=== PATIENT | male | born 1990 | race Caucasian/White ===

== ENCOUNTER 2022-01-07 11:40 | Emergency (ER) | payer OTHER, MEDICAID, SELFPAY ==
[2022-01-07 11:44] VITALS: BP 136/80; PULSE 104; RESP 18; TEMP 36.6; O2SAT 98; BMI 26.6
--- NOTE | 2022-01-07 12:02 | DI.RAD.S_ITS ---
PROCEDURE: XR CHEST 1V INDICATIONS: suspected sepsis TECHNIQUE: One view of the chest was acquired. COMPARISON: None. FINDINGS: Surgical changes and devices: None. Lungs and pleura: Lungs are clear. No pleural effusions or pneumothorax. Mediastinum: Mediastinal contours appear normal. Heart size is normal. Bones and chest wall: No suspicious bony lesions. Overlying soft tissues appear unremarkable. IMPRESSION: No acute pulmonary process. Dictated by: Regina Puentes M.D. on 01/07/2022 at 12:39 Approved by: Regina Puentes M.D. on 01/07/2022 at 12:39
[2022-01-07] MEDS: SODIUM CHLORIDE 0.9% 1,000 ML 1000 ML IV (12:06)
[2022-01-07 12:31] LABS: Add Manual Diff / Slide Review NO; Basophils Absolute Auto 100 /uL (0-100); Basophils Percent Auto 0.8 % (0-2); Eosinophils Absolute Auto 300 /uL (0-450); Eosinophils Percent Auto 2.5 % (2-4); Hematocrit 46.1 % (41-53); Lymphocytes Absolute Auto 3500 /uL (1100-4500); Mean Corpuscular HGB Conc 34.6 % (30-36); Mean Corpuscular Hemoglobin 30.4 PG (26-34); Mean Corpuscular Volume 87.7 fL (80-100); Monocytes Absolute Auto 800 /uL (0-900); Monocytes Percent Auto 6.3 % (3-14); Neutrophils Absolute Auto 7300 /uL (1500-7000); Neutrophils Percent Auto 61.4 % (50-75); Platelet Count 274 X10^3/uL (150-400); Red Blood Cell Count 5.25 X10^6/uL (4.5-5.9); Red Cell Distribution Width 12.9 % (11.6-14.8)
[2022-01-07 12:39] LABS: Prothrombin Time 11.5 SECONDS (10.1-12.7)
[2022-01-07 12:41] LABS: PTT Partial Thromboplastin Tim 35 SECONDS (26.4-36.2)
[2022-01-07 12:43] LABS: Alanine Aminotransferase 20 IU/L (<50); Albumin 5.2 g/dL (3.5-5.0); Albumin Globulin Ratio 1.6 (1.0-2.8); Alkaline Phosphatase 95 U/L (38-126); Aspartate Aminotransferase 20 IU/L (17-59); BUN Creatinine Ratio 21.3 (6-22); Bilirubin Total 0.3 mg/dL (0.2-1.3); Blood Urea Nitrogen 17 mg/dL (9-20); Calcium 9.8 mg/dL (8.4-10.2); Carbon Dioxide 23 mmol/L (22-32); Chloride 106 mmol/L (98-107); Estimated Glomerular Filt Rate > 60.0 mL/min (>60); Globulin 3.2 g/dL (1.7-4.1); Glucose 93 mg/dL (70-100); HEMOLYSIS < 15 (0-50); Lipase 91 U/L (23-300); Potassium 4.2 mmol/L (3.4-5.1); Sodium 138 mmol/L (137-145); Total Protein 8.4 g/dL (6.3-8.2)
[2022-01-07 12:44] LABS: Lactate (Lactic Acid) 1.3 mmol/L (0.7-2.1)
--- NOTE | 2022-01-07 12:53 | ED_ITS ---
HPI - Weakness General Chief complaint: Weakness Stated complaint: Night sweats, gradual weakness x 30 days Time Seen by Provider: 01/07/22 12:01 Source: patient Mode of arrival: Ambulatory History of Present Illness HPI Narrative: Patient is a 31-year-old male without medical history presenting today with generalized weakness night sweats ongoing for 1 month. He states that he has had soaking wet night sweats. He has had increasing fatigue. He does exercise felt 30 minutes 5 days a week. He has changed his diet to white meats and started increasing his vegetables. He denies any chest pain. He occasionally has shortness of breath. He has not had any hemoptysis he has not traveled anywhere. He has not had any significant weight loss/gain or change in appetite. He has no headaches no neck pain he overall does not feel good. Patient says he occasionally smokes marijuana but is not actively smoker. He did quit drinking alcohol over a month ago. He did not go through any withdrawals. Related Data Home Medications Medication Instructions Recorded Confirmed No Known Home Medications 03/29/18 01/07/22 Allergies Allergy/AdvReac Type Severity Reaction Status Date / Time No Known Drug Allergies Allergy Verified 01/07/22 11:48 Review of Systems Review of Systems ROS Unobtainable: All systems reviewed & are unremarkable except as noted in HPI and below Patient History Social History Smoking Status: Former smoker Smoking Status: Former smoker alcohol intake frequency: 0-2 drinks per day Substance Use Type: marijuana Exam Initial Vital Signs Initial Vital Signs: Vital Signs Temperature 97.9 F 01/07/22 11:44 Pulse Rate 104 H 01/07/22 11:44 Respiratory Rate 18 01/07/22 11:44 Blood Pressure 136/80 01/07/22 11:44 Pulse Oximetry 98 01/07/22 11:44 GENERAL: Alert well-appearing 31-year-old male HEENT: Head atraumatic,EOMI, pupils reactive, face symmetric, moist mucous membranes , no meningeal signs CARDIOVASCULAR: Regular rate and rhythm without murmurs, rubs or gallops. RESPIRATORY: Breath sounds equal bilaterally, no wheezes rales or rhonchi. ABDOMEN: Soft, nontender. Normoactive bowel sounds all 4 quadrants. No guarding or rebound. EXTREMITIES: Normal range of motion, no clubbing or edema. Neurovascularly intact NEUROLOGICAL: Alert and oriented x4.Normal gait and speech. Cranial nerves II through XII grossly intact. Good [id number], good [id number], strength equal bilaterally, no dysarthria or aphasia, sensation in tact to soft touch bilaterally, no visual changes, no facial droop SKIN: Warm, dry, no laceration, no petechiae, no rashes or lesions. Scores PERC Score Age greater than or equal to 50 years: No Heart rate greater than or equal to 100 bpm: Yes Room Air O2 Sat less than 95%: No Unilateral leg swelling: No Recent trauma or surgery: No Hemoptysis: No Prior PE or DVT: No Hormone Use: No Total PERC Score: 1 Course Orders Ordered: ED Orders 01/07/22 12:00 COVID19 -Nasal swab/Pre-Proc Stat Complete Blood Count AUTO DIFF Stat Comprehensive Metabolic Panel Stat D Dimer Stat Lactate (Lactic Acid) Stat Lipase Stat Partial Thromboplastin Time Stat Procalcitonin Stat Prothrombin Time INR Stat TSH [Thyroid Stimulating Hormone] Stat 01/07/22 12:02 XR chest 1V Stat EKG-12 Lead Stat RT Consult Eval and Treat NOW 01/07/22 13:18 Blood Culture Stat Discontinued Medications Sodium Chloride (Normal Saline 0.9%) 1,000 mls @ 1,000 mls/hr IV BOLUS ONE Stop: 01/07/22 13:01 Last Infusion: 01/07/22 13:13 Dose: 0 mls/hr Documented by: Admin: 01/07/22 12:06 Dose: 1,000 mls/hr Documented by: JING Vital Signs Vital signs: Vital Signs - 8 hr 01/07/22 11:44 01/07/22 13:54 Temperature 97.9 F Pulse Rate 104 H 77 Respiratory Rate 18 Blood Pressure 136/80 120/62 Pulse Oximetry 98 97 MDM - Weakness Lab Data Result diagrams: 01/07/22 12:00 01/07/22 12:00 Labs: Lab Results 01/07/22 01/07/22 01/07/22 Range/Units 12:00 12:00 12:00 WBC 12.0 H (4.5-11.0) X10^3/uL RBC 5.25 (4.5-5.9) X10^6/uL Hgb 16.0 (13.5-17.5) g/dL Hct 46.1 (41-53) % MCV 87.7 (80-100) fL MCH 30.4 (26-34) PG MCHC 34.6 (30-36) % RDW 12.9 (11.6-14.8) % Plt Count 274 (150-400) X10^3/uL Neut % (Auto) 61.4 (50-75) % Lymph % (Auto) 29.0 (25-40) % [place] % (Auto) 6.3 (3-14) % Eos % (Auto) 2.5 (2-4) % Baso % (Auto) 0.8 (0-2) % Neut # (Auto) 7300 H (0089-3081) /uL Lymph # (Auto) 3500 (1477-0834) /uL [place] # (Auto) 800 (0-900) /uL Eos # (Auto) 300 (0-450) /uL Baso # (Auto) 100 (0-100) /uL PT (10.1-12.7) SECONDS INR (0.9-1.3) APTT (26.4-36.2) SECONDS D-Dimer (<230) ng/mL Sodium 138 (137-145) mmol/L Potassium 4.2 (3.4-5.1) mmol/L Chloride 106 (98-107) mmol/L Carbon Dioxide 23 (22-32) mmol/L BUN 17 (9-20) mg/dL Creatinine 0.80 (0.66-1.25) mg/dL Estimated GFR > 60.0 (>60) mL/min BUN/Creatinine Ratio 21.3 (6-22) Glucose 93 (70-100) mg/dL Lactate 1.3 (0.7-2.1) mmol/L Calcium 9.8 (8.4-10.2) mg/dL Total Bilirubin 0.3 (0.2-1.3) mg/dL AST 20 (17-59) IU/L ALT 20 (<50) IU/L Alkaline Phosphatase 95 (38-126) U/L Total Protein 8.4 H (6.3-8.2) g/dL Albumin 5.2 H (3.5-5.0) g/dL Globulin 3.2 (1.7-4.1) g/dL Albumin/Globulin Ratio 1.6 (1.0-2.8) Lipase 91 (23-300) U/L Procalcitonin 0.04 (<0.5) ng/mL TSH (0.47-4.68) uIU/mL SARS-CoV-2 (PCR) (Negative) 01/07/22 01/07/22 01/07/22 Range/Units 12:00 12:00 12:00 WBC (4.5-11.0) X10^3/uL RBC (4.5-5.9) X10^6/uL Hgb (13.5-17.5) g/dL Hct (41-53) % MCV (80-100) fL MCH (26-34) PG MCHC (30-36) % RDW (11.6-14.8) % Plt Count (150-400) X10^3/uL Neut % (Auto) (50-75) % Lymph % (Auto) (25-40) % [place] % (Auto) (3-14) % Eos % (Auto) (2-4) % Baso % (Auto) (0-2) % Neut # (Auto) (0347-6219) /uL Lymph # (Auto) (6097-8532) /uL [place] # (Auto) (0-900) /uL Eos # (Auto) (0-450) /uL Baso # (Auto) (0-100) /uL PT 11.5 (10.1-12.7) SECONDS INR 1.0 (0.9-1.3) APTT 35 (26.4-36.2) SECONDS D-Dimer < 200 (<230) ng/mL Sodium (137-145) mmol/L Potassium (3.4-5.1) mmol/L Chloride (98-107) mmol/L Carbon Dioxide (22-32) mmol/L BUN (9-20) mg/dL Creatinine (0.66-1.25) mg/dL Estimated GFR (>60) mL/min BUN/Creatinine Ratio (6-22) Glucose (70-100) mg/dL Lactate (0.7-2.1) mmol/L Calcium (8.4-10.2) mg/dL Total Bilirubin (0.2-1.3) mg/dL AST (17-59) IU/L ALT (<50) IU/L Alkaline Phosphatase (38-126) U/L Total Protein (6.3-8.2) g/dL Albumin (3.5-5.0) g/dL Globulin (1.7-4.1) g/dL Albumin/Globulin Ratio (1.0-2.8) Lipase (23-300) U/L Procalcitonin (<0.5) ng/mL TSH (0.47-4.68) uIU/mL SARS-CoV-2 (PCR) Negative (Negative) 01/07/22 Range/Units 12:00 WBC (4.5-11.0) X10^3/uL RBC (4.5-5.9) X10^6/uL Hgb (13.5-17.5) g/dL Hct (41-53) % MCV (80-100) fL MCH (26-34) PG MCHC (30-36) % RDW (11.6-14.8) % Plt Count (150-400) X10^3/uL Neut % (Auto) (50-75) % Lymph % (Auto) (25-40) % [place] % (Auto) (3-14) % Eos % (Auto) (2-4) % Baso % (Auto) (0-2) % Neut # (Auto) (1790-5733) /uL Lymph # (Auto) (2834-7300) /uL [place] # (Auto) (0-900) /uL Eos # (Auto) (0-450) /uL Baso # (Auto) (0-100) /uL PT (10.1-12.7) SECONDS INR (0.9-1.3) APTT (26.4-36.2) SECONDS D-Dimer (<230) ng/mL Sodium (137-145) mmol/L Potassium (3.4-5.1) mmol/L Chloride (98-107) mmol/L Carbon Dioxide (22-32) mmol/L BUN (9-20) mg/dL Creatinine (0.66-1.25) mg/dL Estimated GFR (>60) mL/min BUN/Creatinine Ratio (6-22) Glucose (70-100) mg/dL Lactate (0.7-2.1) mmol/L Calcium (8.4-10.2) mg/dL Total Bilirubin (0.2-1.3) mg/dL AST (17-59) IU/L ALT (<50) IU/L Alkaline Phosphatase (38-126) U/L Total Protein (6.3-8.2) g/dL Albumin (3.5-5.0) g/dL Globulin (1.7-4.1) g/dL Albumin/Globulin Ratio (1.0-2.8) Lipase (23-300) U/L Procalcitonin (<0.5) ng/mL TSH 4.20 (0.47-4.68) uIU/mL SARS-CoV-2 (PCR) (Negative) Urine Dip Bedside Urine Glucose Negative Bedside Urine Bilirubin - Negative Bedside Urine Ketone - Negative Urine Specific [place] 1.020 Bedside Urine Occult Blood - Negative Bedside Urine pH 6.5 Bedside Urine Protein - Negative Bedside Urine Urobilinogen - Negative Bedside Urine Nitrite - Negative Bedside Urine Leukocytes - Negative Esterase Imaging Data Chest x-ray: Radiologist Impression: PROCEDURE:? XR CHEST 1V ? INDICATIONS:? suspected sepsis ? TECHNIQUE:? One view of the chest was acquired.? ? COMPARISON:? None. ? FINDINGS:? ? Surgical changes and devices:? None.? ? Lungs and pleura:? Lungs are clear.? No pleural effusions or pneumothorax.? ? Mediastinum:? Mediastinal contours appear normal.? Heart size is normal.? ? Bones and chest wall:? No suspicious bony lesions.? Overlying soft tissues appear unremarkable.? ? IMPRESSION:? No acute pulmonary process. ? ? Dictated by: Regina Puentes M.D. on 01/07/2022 at 12:39 ? ? ECG Data Interpretation: Normal sinus rhythm rate 72 SD interval 106 QRS 94 QTC 427 T-wave inversion noted in lead [address] elevations no priors to compare MDM Narrative Medical decision making narrative: Patient overall appears well in the emergency department. Mild leukocytosis of 12. No sign of leukemia or lymphoma at this time. X-ray is negative. Blood work is overall reassuring D-dimer is also negative low risk for pulmonary embolism. TSH is mildly elevated at 4 but unlikely to be causing all of his sy mptoms. He does not have any sign of infection, no sign of meningitis. outpatient follow-up. Discharge Plan Departure Patient Disposition: Home Clinical Impression: Weakness Instructions: DI for Muscle Weakness Activity Restrictions/Additional Instructions: *You have been diagnosed with weakness *What to do: At this time workup in the emergency department overall reassuring. Mild elevation of thyroid please have this evaluated by primary care provider *Continue to take medications as directed *Follow up with your primary care provider in 2-3 days or call [phone] *Return to ER if you should have increasing weakness, chest pain shortness of breath or any new, worsening or concerning symptoms Prescriptions: No Action No Known Home Medications 0RF
[2022-01-07 12:57] LABS: COVID19 -Nasal RAPID Negative (Negative)
[2022-01-07 13:00] LABS: Procalcitonin 0.04 ng/mL (<0.5)
[2022-01-07 13:44] LABS: D Dimer < 200 ng/mL (<230)
[2022-01-07 13:54] VITALS: BP 120/62; PULSE 77; O2SAT 97
== END 2022-01-07 15:10 | disposition home or self-care (01) ==
PROVIDERS: Emergency Provider Emergency Medicine
DX: R53.1 Weakness (principal); Z87.891 Personal history of nicotine dependence; Z20.822 Contact with and (suspected) exposure to COVID-19
CPT/HCPCS: 36415; 71045; 80053; 81003; 83605; 83690; 84145; 84443; 85025; 85379; 85610; 85730; 87040; 87635; 93005; 96360; 99284; C9803

== ENCOUNTER 2022-06-02 09:21 | Emergency (ER) | payer OTHER, MEDICAID, SELFPAY ==
[2022-06-02 09:25] VITALS: BP 138/73; PULSE 87; RESP 14; TEMP 37; O2SAT 97; BMI 28.8
[2022-06-02 12:34] VITALS: BP 130/70; PULSE 75; RESP 18; O2SAT 98
--- NOTE | 2022-06-02 20:54 | ED_ITS ---
HPI - Skin/Abscess/Foreign Bdy <Mirlande Noland PA-C - Last Filed: 06/02/22 20:58> General Chief complaint: Skin/Abscess/Foreign Body Stated complaint: RASH ALL OVER Time Seen by Provider: 06/02/22 12:14 Source: patient Mode of arrival: Ambulatory Limitations: no limitations History of Present Illness HPI narrative: 31-year-old male with no reported past medical history presents to the ED with a left-sided rash for the last 5 days. Patient states he noted the rash 1st on his left upper back, which then spread to under his left arm. Patient states he feels some tingling or burning pain sporadically, but denies itching. Patient endorses that he had chickenpox as a child. Patient denies any lesions on the right side of his body or on his face. Patient denies fever, chills, chest blanche n, shortness of breath, nausea, vomiting. Patient denies immunocompromised state including cancer, HIV. Related Data Previous Rx's Medication Instructions Recorded valacyclovir 1 gram tablet 1,000 mg PO Q8H 7 days #21 tabs 06/02/22 Allergies Allergy/AdvReac Type Severity Reaction Status Date / Time No Known Drug Allergies Allergy Verified 06/02/22 09:27 Review of Systems <Mirlande Noland PA-C - Last Filed: 06/02/22 20:58> Review of Systems ROS Unobtainable: All systems reviewed & are unremarkable except as noted in HPI and below Constitutional Constitutional: Denies chills, Denies fatigue, Denies fever(s), Denies frequent falls, Denies lethargy and Denies weakness Eyes Eyes: Denies change in vision, Denies eye discharge, Denies irritation and Denies loss of vision ENT Ears, Nose, Mouth, and Throat: Denies change in voice, Denies dizziness, Denies neck pain, Denies sore throat and Denies throat swelling Cardiovascular Cardiovascular: Denies chest pain, Denies irregular heart rhythm, Denies lightheadedness, Denies palpitations, Denies dyspnea, Denies dyspnea on exertion and Denies orthopnea Respiratory Respiratory: Denies cough, Denies dyspnea, Denies dyspnea on exertion and Denies wheezing Gastrointestinal Gastrointestinal: Denies abdominal pain, Denies change in bowel habits, Denies diarrhea, Denies nausea and Denies vomiting Genitourinary Genitourinary: Denies hematuria, Denies flank pain, Denies urinary incontinence and Denies urinary urgency Musculoskeletal Musculoskeletal: Denies back pain, Denies muscle weakness, Denies neck pain, Denies numbness and Denies tingling Integumentary/Breasts Skin/Breast: Denies pruritus, Denies erythema, Denies rash and Denies wounds Comments: Rash on left upper back, under left arm Neurologic Neurologic: Denies behavioral changes, Denies confusion, Denies dizziness, Denies frequent falls, Denies loss of vision, Denies numbness, Denies tingling and Denies weakness Psychiatric Psychiatric: Denies anxiety, Denies behavioral changes, Denies confusion, Denies depression, Denies homicidal ideation and Denies suicidal ideation Endocrine Endocrine: Denies fatigue, Denies flushing and Denies palpitations Hematologic/Lymphatic Hematologic/Lymphatic: Denies easy bruising Allergic/Immunologic Allergic/Immunologic: Denies urticaria, Denies throat swelling and Denies wheezing Patient History <Mirlande Noland PA-C - Last Filed: 06/02/22 20:58> Social History Smoking Status: Former smoker Smoking Status: Former smoker alcohol intake frequency: other Substance Use Type: marijuana Exam <Mirlande Noland PA-C - Last Filed: 06/02/22 20:58> Narrative Exam Narrative: Const General:?cooperative, healthy appearing and comfortable [facility] Head:?normal to inspection Ears:?hearing grossly normal bilaterally Nose:?external nose normal Face and sinus:?normal facial exam and sinuses nontender Mouth:?oral mucosae normal Throat:?posterior oropharynx normal Eyes General:?appearance normal, both eyes and all related structures Neck Neck:?normal visual inspection and no lymphadenopathy noted Resp Effort & Inspection:?normal respiratory effort Auscultation:?clear to auscultation bilaterally Cardio Rate:?regular rate Rhythm:?regular rhythm Integumentary Erythematous, vesicular lesions consistent with herpes zoster on left upper back, under left arm. No overlying bacterial infection. Neuro General:?patient alert, patient awake and patient oriented x Initial Vital Signs Initial Vital Signs: Vital Signs Temperature 98.6 F 06/02/22 09:25 Pulse Rate 87 06/02/22 09:25 Respiratory Rate 14 06/02/22 09:25 Blood Pressure 138/73 06/02/22 09:25 Pulse Oximetry 97 06/02/22 09:25 Oxygen Delivery Method 06/02/22 09:25 <Muna Maria DO - Last Filed: 06/03/22 09:33> Initial Vital Signs Initial Vital Signs: Vital Signs Temperature 98.6 F 06/02/22 09:25 Pulse Rate 87 06/02/22 09:25 Respiratory Rate 14 06/02/22 09:25 Blood Pressure 138/73 06/02/22 09:25 Pulse Oximetry 97 06/02/22 09:25 Oxygen Delivery Method 06/02/22 09:25 MDM - Skin/Abscess/Foreign Bdy <Mirlande Noland PA-C - Last Filed: 06/02/22 20:58> MDM Narrative Medical decision making narrative: 31-year-old male with no reported past medical history presents to the ED with a left-sided rash for the last 5 days. Physical exam consistent with shingles. Prescribed valacyclovir for 7 days. ED return precautions discussed with patient. Patient verbalized understanding. Discharge Plan Departure Patient Disposition: Home Clinical Impression: Herpes zoster Instructions: DI for Shingles Activity Restrictions/Additional Instructions: You were evaluated in the ED today for a left-sided rash. Your symptoms are likely due to shingles. You are being prescribed valacyclovir for 7 days. Please complete the full course. Return to the ED or see an product support technician if you notice any lesions on your face, especially near the nose or around the eyes. Prescriptions: New valacyclovir 1 gram tablet 1,000 mg PO Q8H 7 Days Qty: 21 0RF Referrals: Miscellaneous,[facility] [Primary Care Provider] - Visit Report Forms: Patient Portal/API <Muna Maria DO - Last Filed: 06/03/22 09:33> Cosign ED Attending Cosmarielaature Attestation: I was immediately available in the department for consultation. Documentation has been reviewed. I agree with assessment and plan.
== END 2022-06-02 12:34 | disposition home or self-care (01) ==
PROVIDERS: Emergency Provider Student in an Organized Health Care Education/Training Program
DX: B02.9 Zoster without complications (principal)
CPT/HCPCS: 99281